=== PATIENT | male | born 1965 | race Two or more races ===

== ENCOUNTER 2022-04-15 13:44 | Emergency (ER) | payer OTHER ==
[~2022-04-15] VITALS: Ht 180.3 cm; Wt 86.2 kg
--- NOTE | 2022-04-15 15:19 | NUR ---
[facility] HERE TO ASSESS PSYCH SITUATION. 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
--- NOTE | 2022-04-15 16:22 | NUR ---
PT SEEN AND EVALUATED BY MD WITH SECURITY AT BEDSIDE. PT HAD AN OUTBURST OF ANGER, WITH LOUD SPEECH, OBJECTING TO PRESENCE OF SECURITY, RESULTING TO HIM STORMING OUT AND WALKING OUT.
== END 2022-04-15 16:22 | disposition left against medical advice (07) ==
LOC: ER 13:44
DX: R45.1 Restlessness and agitation (principal)
CPT/HCPCS: A4663